=== PATIENT | female | born 1960 | race Asian ===

== ENCOUNTER → 2017-11-19 | Day surgery (SDC) | payer OTHER ==
[2017-11-18 09:06] LABS: INR 0.96; PARTIAL THROMBOPLASTIN TIME 33.9 seconds (23.8-35.5)
[~2017-11-19] MED LIST: BUPIVACAINE 0.5%/EPI 30 ML SDV INJ ONE; BUPIVACAINE HCL 0.5% INJ 30 ML VIAL INJ ONE; CALCIUM; CEFAZOLIN SOD 1 GM VIAL ONE; DEXAMETHASONE SOD PHOS INJ 4 MG/ML VIAL ONE; FENTANYL CITRATE/PF 100MCG/2 ML INJ ONE; LIDOCAINE HCL 2% LOCAL INJ 5 ML SDV VIAL INJ ONE; MIDAZOLAM HCL 2 MG/2 ML VIAL ONE; ONDANSETRON HCL INJ 2 MG/ML VIAL ONE; PROPOFOL IV EMULSION 10 MG/ML 20 ML VIAL ONE; SEVOFLURANE INHAL SOLN 250 ML PEN BTL ONE; VIT B PO; VITAMIN
--- NOTE | 2017-11-19 11:01 | Operative Report ---
DATE OF PROCEDURE: November 19, 2017 PREOPERATIVE DIAGNOSIS: Left carpal tunnel syndrome. POSTOPERATIVE DIAGNOSIS: Left carpal tunnel syndrome. PROCEDURE: Left carpal tunnel release. ANESTHESIA: General. INDICATIONS: Patient is a woman who presents with left carpal tunnel syndrome. She was taken to the operating room for left carpal tunnel release. PROCEDURE: After induction of anesthesia, the patient was placed on the operating table in the supine position with the left arm abducted over a hand table. The left hand, wrist and forearm were prepped and draped circumferentially in a sterile fashion. A small midline incision was created over the median palmar crease of the hand just distal to the distal flexor crease of the wrist. The subcutaneous fat was divided. The transverse carpal ligament was identified, and incised with a #15 C-blade until the underlying median nerve came into view. As the media center assistant retracted the skin edges, the transverse carpal ligament was divided proximally and distally until the full length the ligament had been divided, and the full length of the median nerve was exposed within the carpal tunnel. The point of maximum compression of the nerve was about 2.5 cm distal to the distal flexor crease of the wrist where the ligament was at its thickest. More distally, the recurrent motor branch of the nerve was preserved within its fat pad. The wound was irrigated with Bacitracin solution. Meticulous hemostasis was secured. Retractor was removed. The subcutaneous layer was closed with a 2-0 Vicryl suture. The skin was closed with a 3-0 nylon suture in a horizontal mattress fashion. A dressing was applied. The patient was awakened, extubated and taken to the postanesthesia care unit in stable condition. No intraoperative complications were encountered. Estimated blood loss was minimal. Job#: [id number]
== END | disposition home or self-care (01) ==
LOC: OR 07:40
PROVIDERS: ATTEND Neurological Surgery
PROC: 01N50ZZ Release Median Nerve, Open Approach (ICD-10-PCS; principal; 2017-11-19 10:03)
DX: G56.03 Carpal tunnel syndrome, bilateral upper limbs (principal); Z01.810 Encounter for preprocedural cardiovascular examination; Z01.812 Encounter for preprocedural laboratory examination
CPT/HCPCS: 36415; 64721; 85610; 85730; 93005; J0690; J1100; J2001; J2250; J2405